=== PATIENT | male | born 1985 | race African-American/Black ===

== ENCOUNTER 2022-01-10 08:39 | Day surgery (SDC) | payer OTHER ==
[~2022-01-10] VITALS: Ht 182.9 cm; Wt 131.5 kg
--- NOTE | 2022-01-10 08:45 | NUR ---
patient ambulatory to room with steady gait accomapnied by mother. consent obtained. vital signs obtained. dr parks notified. new orders received.
--- NOTE | 2022-01-10 09:52 | NUR ---
dr parks at bedside at this time to place a central line.
--- NOTE | 2022-01-10 11:30 | NUR ---
dr parks at bedside tlc placed to left groin.
--- NOTE | 2022-01-10 12:10 | NUR ---
dr parkinson at bedside at this time to remove guidewire to right groin.
--- NOTE | 2022-01-10 12:25 | NUR ---
dr parks phoned mother in refernce to tranfer to [facility] to remove guidewire. mother gave consent for transfer.
--- NOTE | 2022-01-10 14:15 | NUR ---
PT WAKING UP, PT NOW ANXIOUS ABOUT TRANSFER. PT UNDERSTANDS NEED FOR TRANSFER AND AGREES. NEW ORDERS RECEIVED AT THIS TIME. WILL MEDICATE WHEN PROFILED.
--- NOTE | 2022-01-10 19:30 | NUR ---
PATIENT IN BED RESTING, ALERT. IV FLUIDS RUNNING. RECEIVED PAIN MEDICATION PER DAY NURSE. PATIENT TOLERATED WELL. NO SIGNS OF DISTRESS NOTED. BED REMAINS IN LOW POSITION WITH BED ALARM ACTIVE FOR SAFETY.
[2022-01-10 19:46] LABS: HEMATOCRIT 39.7 % (39.0-50.0); HEMOGLOBIN 12.1 g/dl (14.0-18.0); IMMATURE GRANULOCYTES 0.2 % (0.0-5.0); MEAN CELL VOLUME 82.4 fL CALC (80.0-100.0); MEAN CORPUSCULAR HGB 25.1 pG CALC (26.0-32.0); MEAN CORPUSCULAR HGB CONC 30.5 g/dL CAL (32.0-36.0); NEUT# 4.28 thou/uL (1.82-7.42); RED BLOOD COUNT 4.82 mill/uL (4.70-6.10); RED CELL DISTRI WIDTH 13.4 % (11.5-15.5)
[2022-01-10 20:02] LABS: ALBUMIN 4.2 g/dL (3.2-5.0); ALKALINE PHOSPHATASE 114 u/l (38-126); ANION GAP 11 (6-22 (CALC)); BILIRUBIN, TOTAL 0.5 mg/dL (0.0-1.4); BUN 11 mg/dL (9-20); BUN/CREATININE RATIO 11 (12-20 (CALC)); CARBON DIOXIDE 32 mmol/l (22-30); CHLORIDE 102 mmol/l (95-108); GFR FOR AFR.AMER. > 60 ML/MIN (>=60 (CALC)); GFR OTHER RACES > 60 ML/MIN (>=60 (CALC)); POTASSIUM 4.7 mmol/l (3.5-5.1); SGOT/AST 26 u/l (17-59); SODIUM 141 mmol/l (137-146); TOTAL PROTEIN 8.2 g/dL (6.3-8.2)
[2022-01-10 20:24] VITALS: BP 95/55
--- NOTE | 2022-01-10 20:26 | NUR ---
CALLED MD AND UPDATED ON PATIENTS STATUS AND VS. ORDER FOR 1L BOLUS RECEIVED. WILL RECHECK BP WHEN BOLUS IS COMPLETE.
[2022-01-10 22:27] VITALS: BP 106/63
[2022-01-11] VITALS (8 sets, daily range): BP systolic 94–153; BP diastolic 51–106
--- NOTE | 2022-01-11 | NUR ---
PATIENT RESTING IN BED ASLEEP. NO SIGNS OF DISTRESS NOTED. BED REMAINS IN LOW POSITION. BED ALARM ACTIVE FOR SAFETY REASONS. WHEN AWAKE PATIENT ABLE TO MAKE NEEDS KNOWN.
--- NOTE | 2022-01-11 04:00 | NUR ---
PATIENT RESTING IN BED ASLEEP. NO SIGNS OF DISTRESS NOTED. VS REMAIN STABLE. BED REMAINS IN LOW POSITION. BED ALARM ACTIVE.
--- NOTE | 2022-01-11 06:40 | NUR ---
RECEIVED REPORT FROM MALKA GLEASON.
--- NOTE | 2022-01-11 07:58 | NUR ---
patient assisted from chair to bed. patient is drowsy. patient is alert and oriented x3. shift assessment completed at this time. bed alarm in place. call light in reach. will continue to monitor.
--- NOTE | 2022-01-11 08:30 | NUR ---
Induction Note Patient to [facility] procedure room. Time out performed at 0830. Patient placed on monitors, Tosha hugger, bilateral wrist restraints applied for ET tube protection. Versed 5mg given IV push at 0832 Lidocaine 100mg given at 833 IV push followed by Rocoronium 10mg at 833 IV push and held for 90 seconds. Propofol bolus of mg given at IV push. Succinylcholine 80mg given IV push at 834 . Smooth intubation with 7.5 ETT. Positive CO2. Positive Auscultation for air exchange. Patient placed on ventilator for spontaneous ventilation. Placed on Propofol IV drip at . OG inserted. Positive air on auscultation. Positive gastric content. Stomach washed at this time.
--- NOTE | 2022-01-11 08:50 | NUR ---
OG close note Stomach washed at this time. Naltrexone 75 mg with Clonidine 0.1 mg via OG tube. OG will be clamped for 45 minutes.
--- NOTE | 2022-01-11 09:45 | NUR ---
OG open note OG open at this time. Gastric content draining into drainage bag. OG to drain for 45 minutes. Propofol will be titrated down based on patient.
--- NOTE | 2022-01-11 10:30 | NUR ---
OG close note Stomach washed at this time. Naltrexone 50 mg with Clonidine 0.3 mg via OG tube. OG will be clamped for 45 minutes.
--- NOTE | 2022-01-11 13:45 | NUR ---
OG close note Stomach washed at this time. Naltrexone 12.5 mg with Clonidine 0.3 mg via OG tube. OG will be clamped for and prepare for extubation.
--- NOTE | 2022-01-11 14:30 | NUR ---
Extubation note Closing medications given Benadryl 50mg IV push, Decadron 10mg IV push,Magnesium 4 grams IV, Zofran 8mg IV push, Octreotide 100mcg SC. Stomach washed out prior to extubation. Suctioned gastric content. OG removed. Patient extubated. Propofol Discontinued. Wrist restraints removed. Tosha hugger Removed. See [facility] Moderate sedate recovery record for further notes and assessment.
--- NOTE | 2022-01-11 15:02 | NUR ---
RECEIVED REPORT FROM MALKA WILLIAM. PT HAS NOT WAKE UP AFTER PROCEDURE. BED ALARM ACTIVE, SAFETY PRECAUTIONS IN PLACE WITH CALL LIGHT IN REACH.
--- NOTE | 2022-01-11 16:15 | NUR ---
PT WAKING UP, STILL DROWSY: ALERT TO SELF ONLY. EVEN AND UNLABORED RESPIRATIONS; CLEAR LUNG SOUNDS UPON AUSCULTATION. O2 @2.5L VIA NASAL CANNULA IN PLACE. HYPOACTIVE BOWEL SOUNDS X4 QUADRANTS. SCABS NOTED ON BILATERAL ARMS. FLUSHED TRIPLE LUMEN ON LEFT FEMORAL, HEALTHY AND PATENT, INFUSING IV FLUIDS PER ORDER. BED ALARM AND SAFETY PRECAUTIONS IN PLACE. CALL LIGHT IN REACH.
[2022-01-11] MEDS ORDERED: CLONIDINE0.1 MG PO (18:39)
[2022-01-11] MEDS ORDERED: KLONOPIN2 MG PO (18:39)
[2022-01-11] MEDS ORDERED: NALTREXONE50 MG PO (18:39)
--- NOTE | 2022-01-11 19:25 | NUR ---
PATIENT RESTING IN BED ON HIS SIDE. NO SIGNS OF DISTRESS NOTED. ALERT AND ABLE TO MAKE NEEDS KNOWN. BED REMAINS IN LOW POSITION. BED ALARM ACTIVE FOR SAFETY.
--- NOTE | 2022-01-11 21:32 | NUR ---
NOTIFIED MD OF PATIENT STATUS.
--- NOTE | 2022-01-12 00:33 | NUR ---
PATIENT RESTING IN BED ON HIS RIGHT SIDE. NO SIGNS OF DISTRESS NOTED. ALERT AND ABLE TO MAKE NEEDS KNOWN. BED REMAINS IN LOW POSITION. BED ALARM ACTIVE FOR SAFETY.
[2022-01-12 03:52] VITALS: BP 150/99
--- NOTE | 2022-01-12 05:14 | NUR ---
PATIENT RECEIVED ALL SCHEDULED MEDS WITHOUT DIFFICULTY. REMAINS ALERT. ABLE TO MAKE NEEDS KNOWN. NO COMPLAINTS VOICED AT THIS TIME. BED REMAINS IN LOW POSITION. BED ALARM ACTIVE.
[2022-01-12 05:26] LABS: HEMATOCRIT 38.8 % (39.0-50.0); HEMOGLOBIN 12.4 g/dl (14.0-18.0); MEAN CELL VOLUME 78.5 fL CALC (80.0-100.0); MEAN CORPUSCULAR HGB 25.1 pG CALC (26.0-32.0); NEUT# 8.81 thou/uL (1.82-7.42); RED BLOOD COUNT 4.94 mill/uL (4.70-6.10); RED CELL DISTRI WIDTH 13.1 % (11.5-15.5)
[2022-01-12 05:52] LABS: ALBUMIN 3.9 g/dL (3.2-5.0); ALKALINE PHOSPHATASE 123 u/l (38-126); ANION GAP 11 (6-22 (CALC)); BILIRUBIN, TOTAL 0.4 mg/dL (0.0-1.4); BUN 10 mg/dL (9-20); BUN/CREATININE RATIO 13 (12-20 (CALC)); CARBON DIOXIDE 27 mmol/l (22-30); CHLORIDE 105 mmol/l (95-108); CREATININE 0.8 mg/dL (0.7-1.3); GFR FOR AFR.AMER. > 60 ML/MIN (>=60 (CALC)); GFR OTHER RACES > 60 ML/MIN (>=60 (CALC)); MAGNESIUM 2.3 mg/dL (1.6-2.3); SGOT/AST 28 u/l (17-59); SODIUM 138 mmol/l (137-146); TOTAL PROTEIN 7.6 g/dL (6.3-8.2)
--- NOTE | 2022-01-12 07:35 | NUR ---
PATIENT ASLEEP IN BED, AROUSABLE TO TOUCH. PATIENT ABLE TO STATE NAME AND BIRTHDAY. BREATHING IS NONLABORED AND EVEN. LEFT GROIN TRIPLE LUMEN IN PLACE, FLUSHABLE X3, RUNNING LR 100ML/HR. SITE APPEARS HEALTHY. ACTIVE BOWEL SOUNDS X4. PATIENT STILL DROWSY. BED IN LOWEST POSITION WITH WHEEL LOCKED AND BE ALARM IN PLACE. CALL LIGHT IN REACH.
--- NOTE | 2022-01-12 13:29 | NUR ---
TLC REMOVED TO LEFT GROIN. COVERED WITH OCCLUSIVE DRESSING PATIENT TOLERAED WELL.
[2022-01-12 13:34] VITALS: BP 152/102
[2022-01-12 13:35] VITALS: BP 138/94
--- NOTE | 2022-01-12 14:10 | NUR ---
Discharge instructions given. Patient verbalizes understanding of same. Discharged in stable condition via Wheelchair to with family. All belongings sent with pt.
== END 2022-01-12 14:10 | disposition home or self-care (01) | DRG 897 ==
LOC: ANR 08:39 → MS2 08:44 → ANR 09:00
PROVIDERS: ATTEND Anesthesiology
DX: F11.20 Opioid dependence, uncomplicated (principal); M79.5 Residual foreign body in soft tissue; Z53.8 Procedure and treatment not carried out for other reasons
CPT/HCPCS: J2354